=== PATIENT | female | born 1990 | race African-American/Black ===

== ENCOUNTER 2017-01-29 11:44 | Emergency (ER) | payer BC ==
[~2017-01-29] VITALS: Ht 172.7 cm; Wt 54.4 kg
[~2017-01-29 11:44] MED LIST: CYCL5TAB PO; SERT50TA8 PO
[2017-01-29 12:24] VITALS: BP 128/90
[2017-01-29 13:14] LABS: BASO % 0 % (0-3); EOS % 1 % (0-3); HEMATOCRIT 31.6 % (36.0-47.0); HEMOGLOBIN 10.7 g/dL (12.0-15.5); LYMPH # 1.2 x10^3/uL (1.0-4.8); LYMPH % 25 % (24-48); MEAN CORPUSCULAR HEMOGLOBIN 29 pg (25-35); MEAN CORPUSCULAR HGB CONC 34 g/dL (31-37); MEAN CORPUSCULAR VOLUME 85 fL (79-100); MONO % 10 % (0-9); NEUT % 64 % (31-73); PLATELET COUNT 209 x10^3/uL (140-400); RED BLOOD COUNT 3.73 x10^6/uL (3.50-5.40); WHITE BLOOD COUNT 4.6 x10^3/uL (4.0-11.0)
[2017-01-29] MEDS ORDERED: IOHEXOL 300 MG/ML 75 ML VIAL IV ONE (13:15)
--- NOTE | 2017-01-29 13:22 | PHYS DOC ---
Past Medical History Past Medical History: Anxiety, Depression, Migraines, Seizure, TIA, Other Additional Past Medical Histor: "LUNG DISEASE",HEART MURMUR,OVARIAN CYSTS Past Surgical History: Other Additional Past Surgical Histo: DENTAL SURGERY,R EYE SURG X2,L FOOT SURG Additional Information: 0.25 PPD Alcohol Use: None Drug Use: Marijuana Adult General Chief Complaint Chief Complaint: MULTIPLE COMPLAINTS HPI HPI 26-year-old female with no prior chronic abdominal history now presents emergency department complaining of 2 week history of diarrhea for which she was seen and treated at another hospital now presents complaining of persistent diarrhea with some blood in her stool over the last day. Patient has no dizziness or near syncope. She does have some intermittent crampy abdominal pain which waxes and wanes. No fevers chills sweats or shaking chills. He is not worse with movement. She has normal bladder habits and denies the possibility of as her status was just checked the other hospital Review of Systems Review of Systems Constitutional: Denies fever or chills [] Eyes: Denies change in visual acuity, redness, or eye pain [] HENT: Denies nasal congestion or sore throat [] Respiratory: Denies cough or shortness of breath [] Cardiovascular: No additional information not addressed in HPI [] GI: Denies abdominal pain, nausea, vomiting, bloody stools or diarrhea [] : Denies dysuria or hematuria [] Musculoskeletal: Denies back pain or joint pain [] Integument: Denies rash or skin lesions [] Neurologic: Denies headache, focal weakness or sensory changes [] Endocrine: Denies polyuria or polydipsia [] Current Medications Current Medications Current Medications Medications (Trade) Dose Ordered Sig/Valentina Start Time Stop Time Status Last Admin Dose Admin Info (Do NOT chart on this entry -- for MONITORING) 1 each PRN DAILY PRN 01/29/17 13:30 01/29/17 16:10 DC Iohexol (Omnipaque 300 Mg/ml) 75 ml 1X ONCE 01/29/17 13:15 01/29/17 13:17 DC 01/29/17 13:39 75 ML Ketorolac Tromethamine (Toradol) 30 mg STK-MED ONCE 01/29/17 15:11 01/29/17 15:12 DC Metronidazole (Flagyl) 2,000 mg 1X ONCE 01/29/17 15:45 7/6/17 15:46 DC 01/29/17 15:45 2,000 MG Allergies Allergies Allergies Coded Allergies Type Severity Reaction Last Updated Verified No Known Drug Allergies 01/17/14 No Physical Exam Physical Exam Well-appearing 26-year-old female no acute distress nondistended abdomen with minimal diffuse tenderness no guarding or rebound normal bowel sounds no mass or megaly remainder of exam benign Constitutional: Well developed, well nourished, no acute distress, non-toxic appearance. [] HENT: Normocephalic, atraumatic, bilateral external ears normal, oropharynx moist, no oral exudates, nose normal. [] Eyes: PERRLA, EOMI, conjunctiva normal, no discharge. [] Neck: Normal range of motion, no tenderness, supple, no stridor. [] Cardiovascular:Heart rate regular rhythm, no murmur [] Lungs & Thorax: Bilateral breath sounds clear to auscultation [] Abdomen: Bowel sounds normal, soft, , no masses, no pulsatile masses. [] Skin: Warm, dry, no erythema, no rash. [] Back: No tenderness, no CVA tenderness. [] Extremities: No tenderness, no cyanosis, no clubbing, ROM intact, no edema. [] Neurologic: Alert and oriented X 3, normal motor function, normal sensory function, no focal deficits noted. [] Psychologic: Affect normal, judgement normal, mood normal. [] Current Patient Data Vital Signs Vital Signs Date Time Temp Pulse Resp B/P (MAP) Pulse Ox O2 Delivery O2 Flow Rate FiO2 01/29/17 12:24 98.3 70 22 128/90 (103) 100 Room Air 98.3 Lab Values Laboratory Tests Test 01/29/17 11:45 01/29/17 12:24 01/29/17 12:53 POC Urine HCG, Qualitative Hcg negative (Negative) Urine Collection Type Unknown Urine Color Yellow Urine Clarity Clear Urine pH 6.5 Urine Specific [place] 1.025 Urine Protein Negative mg/dL (NEG-TRACE) Urine Glucose (UA) Negative mg/dL (NEG) Urine Ketones (Stick) Negative mg/dL (NEG) Urine Blood Trace (NEG) Urine Nitrite Negative (NEG) Urine Bilirubin Negative (NEG) Urine Urobilinogen Dipstick 0.2 mg/dL (0.2 mg/dL) Urine Leukocyte Esterase Negative (NEG) Urine RBC 1-2 /HPF (0-2) Urine WBC 5-10 /HPF (0-4) Urine Squamous Epithelial Cells Many /LPF Urine Bacteria Few /HPF (0-FEW) Urine Mucus Marked /LPF Urine Trichomonas Present White Blood Count 4.6 x10^3/uL (4.0-11.0) Red Blood Count 3.73 x10^6/uL (3.50-5.40) Hemoglobin 10.7 g/dL (12.0-15.5) L Hematocrit 31.6 % (36.0-47.0) L Mean Corpuscular Volume 85 fL (79-100) Mean Corpuscular Hemoglobin 29 pg (25-35) Mean Corpuscular Hemoglobin Concent 34 g/dL (31-37) Red Cell Distribution Width 16.0 % (11.5-14.5) H Platelet Count 209 x10^3/uL (140-400) Neutrophils (%) (Auto) 64 % (31-73) Lymphocytes (%) (Auto) 25 % (24-48) Monocytes (%) (Auto) 10 % (0-9) H Eosinophils (%) (Auto) 1 % (0-3) Basophils (%) (Auto) 0 % (0-3) Neutrophils # (Auto) 3.0 x10^3uL (1.8-7.7) Lymphocytes # (Auto) 1.2 x10^3/uL (1.0-4.8) Monocytes # (Auto) 0.5 x10^3/uL (0.0-1.1) Eosinophils # (Auto) 0.1 x10^3/uL (0.0-0.7) Basophils # (Auto) 0.0 x10^3/uL (0.0-0.2) Sodium Level 141 mmol/L (136-145) Potassium Level 4.0 mmol/L (3.5-5.1) Chloride Level 107 mmol/L (98-107) Carbon Dioxide Level 27 mmol/L (21-32) Anion Gap 7 (6-14) Blood Urea Nitrogen 11 mg/dL (7-20) Creatinine 0.9 mg/dL (0.6-1.0) Estimated GFR (Cockcroft-Gault) 93.1 BUN/Creatinine Ratio 12 (6-20) Glucose Level 87 mg/dL (70-99) Calcium Level 8.1 mg/dL (8.5-10.1) L Total Bilirubin 0.4 mg/dL (0.2-1.0) Aspartate Amino Transferase (AST) 20 U/L (15-37) Alanine Aminotransferase (ALT) 22 U/L (14-59) Alkaline Phosphatase 45 U/L (46-116) L Total Protein 7.4 g/dL (6.4-8.2) Albumin 3.9 g/dL (3.4-5.0) Albumin/Globulin Ratio 1.1 (1.0-1.7) Lipase 255 U/L (73-393) Laboratory Tests 01/29/17 12:53 Laboratory Tests 01/29/17 12:53 Microbiology 01/29/17 Urine Culture - Final, Complete 01/29/17 Urine Culture Result 1 (GURDEEP) - Final, Complete EKG EKG [] Radiology/Procedures Radiology/Procedures [] Course & Med Decision Making Course & Med Decision Making Pertinent Labs and Imaging studies reviewed. (See chart for details) Signs and symptoms consistent with enteritis in a well-appearing patient with chronic diarrhea who now reports she had a small amount of blood in her stool. Full workup pending including labs and CT . The signs stable. IV fluids administered. Workup unremarkable except for mild anemia and Trichomonas in urine. Patient stable and well-appearing in no further workup or treatment indicated. Patient and family agree with outpatient follow-up and strict return precautions given [] Dragon Disclaimer Dragon Disclaimer This electronic medical record was generated, in whole or in part, using a voice recognition dictation system. Departure Departure Impression: Primary Impression: Diarrhea Additional Impressions: Anemia Trichomonas vaginalis infection Disposition: HOME, SELF-CARE Condition: STABLE Referrals: CLARI BRYANT MD (PCP) Patient Instructions: Anemia, FAQs, Chronic Diarrhea Additional Instructions: It is unclear what is causing her chronic diarrhea. There was no visible blood in her stool in the emergency department. Plenty of fluids and use Levsin as prescribed as needed for crampy abdominal pain. You do have a mild anemia with a hemoglobin of 10.7. Follow-up with your doctor for reevaluation and referral to gastroenterology for further workup and treatment as needed. Return immediately for new severe or worsening symptoms. Your positive for Trichomonas today. This is a sexually transmitted disease. It has been treated completely with the dose of Flagyl we have given you. Follow-up with the health department for full STD screening and treatment as needed. Scripts Hyoscyamine Sulfate (LEVSIN-SL) 0.125 Mg Tab.subl 0.125 MG SL TID for PAIN, #20 TAB Prov: REMINGTON ARGUELLES MD 01/29/17 Problem Qualifiers REMINGTON ARGUELLES MD Jan 29, 2017 13:22
[2017-01-29 13:26] LABS: CALCIUM 8.1 mg/dL (8.5-10.1); CREATININE 0.9 mg/dL (0.6-1.0); GFR 93.1
[2017-01-29] MEDS ORDERED: CONTRAST GIVEN MC PRN (13:30)
[2017-01-29 13:35] LABS: ALBUMIN 3.9 g/dL (3.4-5.0); ALBUMIN/GLOBULIN RATIO 1.1 (1.0-1.7); TOTAL BILIRUBIN 0.4 mg/dL (0.2-1.0); TOTAL PROTEIN 7.4 g/dL (6.4-8.2)
--- NOTE | 2017-01-29 14:05 | RAD ---
Indication abdominal pain and bloody diarrhea for months. Axial images through the abdomen and pelvis were obtained. Oral contrast was not administered. Approximately 75 cc of Omnipaque 300 was The lung bases are clear. The liver and spleen appear unremarkable. The gallbladder is largely collapsed but grossly normal. No adrenal or renal pathology is seen. No pancreatic pathology is seen. No acute finding is apparent in the abdomen. No acute or significant finding is seen in the pelvis. IMPRESSION: No acute finding seen in the abdomen or pelvis
[2017-01-29 14:11] LABS: BILIRUBIN,URINE NEGATIVE (NEG); GLUCOSE,URINE NEGATIVE (NEG)
[2017-01-29 14:12] LABS: BACTERIA,URINE FEW /HPF (0-FEW); NITRITE,URINE NEGATIVE (NEG); PH,URINE 6.5; PROTEIN,URINE NEGATIVE (NEG-TRACE); SQUAMOUS EPITHELIAL CELL,UR MANY /LPF; TRICHOMONAS,URINE PRESENT; UROBILINOGEN,URINE 0.2 mg/dL (0.2 mg/dL)
[2017-01-29] MEDS ORDERED: KETOROLAC TROMETHAMINE 30 MG/ML INJ. ONE (15:11)
[2017-01-29] MEDS ORDERED: metroNIDAZOLE 500 MG TABLET PO ONE (15:45)
[2017-01-29] MEDS ORDERED: HYOS0.1265 SL (15:51)
== END 2017-01-29 16:10 | disposition home or self-care (01) ==
LOC: ER 11:44
DX: R19.7 Diarrhea, unspecified (principal); D64.9 Anemia, unspecified; A59.01 Trichomonal vulvovaginitis; K92.1 Melena; F41.9 Anxiety disorder, unspecified; F32.9 Major depressive disorder, single episode, unspecified; G43.909 Migraine, unspecified, not intractable, without status migrainosus; F17.200 Nicotine dependence, unspecified, uncomplicated; F12.10 Cannabis abuse, uncomplicated; Z86.73 Personal history of transient ischemic attack (TIA), and cerebral infarction without residual deficits
CPT/HCPCS: 36415; 74177; 80053; 81001; 81025; 83690; 85027; 87086; 99285; Q9967